=== PATIENT | female | born 1970 | race African-American/Black ===

== ENCOUNTER 2019-11-13 08:31 | Emergency (ER) | payer OTHER, SELFPAY ==
[2019-11-13 08:48] VITALS: BP 124/73; PULSE 66; RESP 16; TEMP 36.6; O2SAT 98
--- NOTE | 2019-11-13 09:04 | ED.SKABFB ---
HPI - Skin/Abscess/Foreign Bdy General Chief complaint: Skin/Abscess/Foreign Body Stated complaint: Rash Time Seen by Provider: 11/13/19 09:04 Source: patient and RN notes reviewed Mode of arrival: ambulatory Limitations: no limitations History of Present Illness HPI narrative: This is a 48 years old female presented office for evaluations of itchy rash for almost a week. Symptoms began shortly after she worked on her yard. She was made aware by the [employer] that there was poison cesar in her yard. She thought she was careful, somehow she is still getting it on her body. She has tried many methods [id number] which include calamine lotion, cortisone cream, antihistamine alcohol and peroxide on affected area with no relief. Denies sick contact. Related Data Home Medications Medication Instructions Recorded Confirmed tamoxifen 5 mg PO DAILY 11/13/19 11/13/19 Allergies Allergy/AdvReac Type Severity Reaction Status Date / Time No Known Allergies Allergy Verified 11/13/19 09:07 Review of Systems Review of Systems: Narrative: CONSTITUTIONAL: Denies fever, chills ENT: Denies difficulty breathing, swollen throat, or tongue swelling CARDIOVASCULAR: Denies chest pain, palpitation RESPIRATORY: Denies dyspnea GASTROINTESTINAL: Denies abdominal pain, nausea, vomiting SKIN: Reports itchy rash on her arms, belly and face MUSCULOSKELETAL: Denies joints pain NEUROLOGIC: Denies lightheaded All other systems reviewed are negative, except as documented in HPI. [facility] Past Medical History Medical History (Updated 11/13/19 @ 09:27 by JOEY Martines) HX: breast cancer Social History Social History Gender identity (if verbalized by the patient): Female Comments At time of signature, I agree with nursing past medical, surgical, social and family history. There is no relevant family history pertinent to the presenting complaint. Exam Narrative: Exam Narrative: GENERAL: This is a well-nourished, well-developed patient, in no apparent distress. THROAT: Mucous membranes moist, posterior pharynx clear. NECK: Neck supple, non-tender without lymphadenopathy, masses or thyromegaly. CARDIOVASCULAR: Regular rate and rhythm without murmurs, gallops, or rubs. RESPIRATORY: Clear to auscultation. Breath sounds equal bilaterally. No wheezes, rales, or rhonchi. GASTROINTESTINAL: Abdomen soft, non-tender, nondistended. Bowel sounds are active. No hepato-splenomegaly, or palpable masses. No guarding. SKIN: scatter macular erythema lesions throughout upper arms. Right side of face, corner, jaw line noted a group vesicular lesion without secondary cellulitis. NEURO: awake, alert, and oriented to person, place and time. There were no obvious focal neurologic abnormalities. Steady gait Nelson Coma Scale Eye Opening: Spontaneous 4 Nelson Coma Scale Motor: Obeys Commands 6 Caitlin Coma Scale Verbal: Oriented 5 Course Vital Signs Vital signs: Vital Signs Temperature 97.8 F 11/13/19 08:48 Pulse Rate 66 11/13/19 08:48 Respiratory Rate 16 11/13/19 08:48 Blood Pressure 124/73 11/13/19 08:48 Pulse Oximetry 98 11/13/19 08:48 Temperature 97.8 F 11/13/19 08:48 Pulse Rate 66 11/13/19 08:48 Respiratory Rate 16 11/13/19 08:48 Blood Pressure 124/73 11/13/19 08:48 Pulse Oximetry 98 11/13/19 08:48 MDM - Skin/Abscess/Foreign Bdy MDM Narrative Medical decision making narrative: Discharge instructions reviewed with patient, as well as provided in writing per nursing staff. The instructions also include specific and strict return/GO TO THE ER as well as f/u information. All questions have been answered, and the patient deny any further questions with discharge and discharge plan. Differential Diagnosis Differential diagnosis: Likely abscess of skin or subcutaneous tissue, viral exanthem, urticaria, allergic reaction to drug, cellulitis, e
== END 2019-11-13 09:18 | disposition home or self-care (01) ==
PROVIDERS: Emergency Provider Nurse Practitioner
DX: L24.7 Irritant contact dermatitis due to plants, except food (principal); Z85.3 Personal history of malignant neoplasm of breast
CPT/HCPCS: 99213; G0463